=== PATIENT | male | born 1990 | race Caucasian/White ===

== ENCOUNTER 2020-01-16 14:51 | Emergency (ER) | payer OTHER ==
[~2020-01-16] VITALS: Ht 182.9 cm; Wt 85.7 kg
--- NOTE | 2020-01-16 15:19 | PHYS DOC ---
Past History Past Medical History: Other Additional Past Medical Histor: heart murmur, hernia repair Past Surgical History: No Surgical History Alcohol Use: None General Adult EDM: Chief Complaint: GROIN PAIN HPI: HPI: 29-year-old male presents with testicular pain. The patient started to have pain around 9 AM this morning. Seem to come on suddenly for no reason. He denies any trauma. He did have a course this morning for the first time and "a while". That seemed to relieve the pain just slightly, but then it came back. He has never had this before. He rates it pain is moderate to severe cramping. It is worse with lying still and improves a little bit with walking. He does not believe his testicles are swollen. Denies fever or chills. Review of Systems: Review of Systems: Constitutional: Denies fever or chills Eyes: Denies change in visual acuity HENT: Denies nasal congestion or sore throat Respiratory: Denies cough or shortness of breath Cardiovascular: Denies chest pain or edema GI: Denies abdominal pain, nausea, vomiting, bloody stools or diarrhea : Testicular pain Musculoskeletal: Denies back pain or joint pain Integument: Denies rash Neurologic: Denies headache, focal weakness or sensory changes Endocrine: Denies polyuria or polydipsia Lymphatic: Denies swollen glands Psychiatric: Denies depression or anxiety Allergies: Allergies: Allergies Coded Allergies Type Severity Reaction Last Updated Verified No Known Drug Allergies 01/16/20 No Physical Exam: PE: Constitutional: Well developed, well nourished, no acute distress, non-toxic appearance. [] HENT: Normocephalic, atraumatic, bilateral external ears normal, oropharynx moist, no oral exudates, nose normal. [] Eyes: PERRLA, EOMI, conjunctiva normal, no discharge. [] Neck: Normal range of motion, no tenderness, supple, no stridor. [] Cardiovascular: Heart rate regular rhythm, no murmur [] Lungs & Thorax: Bilateral breath sounds clear to auscultation [] Abdomen: Bowel sounds normal, soft, no tenderness, no masses, no pulsatile masses. [] Skin: Warm, dry, no erythema, no rash. [] Back: No tenderness, no CVA tenderness. [] Extremities: No tenderness, no cyanosis, no clubbing, ROM intact, no edema. [] Neurologic: Alert and oriented X 3, normal motor function, normal sensory function, no focal deficits noted. [] Psychologic: Affect normal, judgement normal, mood normal. : Normal descended testes bilaterally, right slightly larger than left. No significant pain to palpation. [] Current Patient Data: Vital Signs: Vital Signs Date Time Temp Pulse Resp B/P (MAP) Pulse Ox O2 Delivery O2 Flow Rate FiO2 01/16/20 14:56 98.8 109 24 159/79 (105) 100 EKG: EKG: [] Radiology/Procedures: Radiology/Procedures: [] Impressions: INDICATION: Testicular pain. COMPARISON: None. TECHNIQUE: Grayscale, color and spectral doppler ultrasound images obtained of the scrotum. FINDINGS: Right Testicle: 54 x 33 x 21 mm. Vascular flow is identified. Left Testicle: 56 x 35 x 21 mm. Vascular flow is identified. No worrisome mass. IMPRESSION: * Vascular flow is identified to the bilateral testicles. Electronically signed by: Jose E Mota MD (01/16/2020 3:44 PM) [id number] DICTATED AND SIGNED BY: JOSE E MOTA MD DATE: 01/16/20 1544 CC: KAILASH BURNS DO; PCP,NO ~ Heart Score: Risk Factors: Risk Factors: DM, Current or recent (<one month) smoker, HTN, HLP, family history of CAD, obesity. Risk Scores: Score 0 - 3: 2.5% MACE over next 6 weeks - Discharge Home Score 4 - 6: 20.3% MACE over next 6 weeks - Admit for Clinical Observation Score 7 - 10: 72.7% MACE over next 6 weeks - Early Invasive Strategies Course & Med Decision Making: Course & Med Decision Making Pertinent Labs and Imaging studies reviewed. (See chart for details) The patient's ultrasound is negative for torsion or other significant finding. I suppose is possible that he does has a musculoskeletal soreness in and around the groin that radiates into the testicle from his activity today. Either way I believe it should resolve on its own. He is stable for discharge at this time. [] Dragon Disclaimer: Dragon Disclaimer: This electronic medical record was generated, in whole or in part, using a voice recognition dictation system. Departure Departure: Impression: Primary Impression: Testicle pain Qualified Codes: N50.811 - Right testicular pain; N50.812 - Left testicular pain Disposition: DC HOME SELF CARE/HOMELESS Condition: STABLE Referrals: PCPSARIKA (PCP) Patient Instructions: Scrotal Swelling KAILASH BURNS DO Jan 16, 2020 15:19
--- NOTE | 2020-01-16 15:47 | RAD ---
INDICATION: Testicular pain. COMPARISON: None. TECHNIQUE: Grayscale, color and spectral doppler ultrasound images obtained of the scrotum. FINDINGS: Right Testicle: 54 x 33 x 21 mm. Vascular flow is identified. Left Testicle: 56 x 35 x 21 mm. Vascular flow is identified. No worrisome mass. IMPRESSION: * Vascular flow is identified to the bilateral testicles. Electronically signed by: Royal Mota MD (01/16/2020 3:44 PM) [id number]
[2020-01-16 15:53] LABS: BILIRUBIN,URINE NEG (NEG); CLARITY,URINE CLEAR; COLOR,URINE AMBER; GLUCOSE,URINE NEG (NEG); NITRITE,URINE NEG (NEG); UROBILINOGEN,URINE 0.2 mg/dL (0.2 mg/dL); WBC,URINE RARE /HPF (0-4)
[2020-01-16 15:54] LABS: BACTERIA,URINE 0 /HPF (0-FEW); SQUAMOUS EPITHELIAL CELL,UR FEW /LPF
[2020-01-16] MEDS ORDERED: ACETAMINOPHEN 500 MG TABLET PO ONE (17:15)
[2020-01-16 17:30] VITALS: BP 150/65
== END 2020-01-16 17:47 | disposition home or self-care (01) ==
LOC: ER 14:51
DX: N50.811 Right testicular pain (principal); N50.812 Left testicular pain
CPT/HCPCS: 36415; 76870; 81001; 87491; 87591; 99284